=== PATIENT | female | born 1960 | race Caucasian/White ===

== ENCOUNTER → 2020-02-22 10:01 | Outpatient (CLI) | payer OTHER, SELFPAY ==
--- NOTE | ~2020-02-22 | MM_ITS ---
EXAMINATION: MM screening [facility] BI w [place] HISTORY: Screening mammogram TECHNIQUE: Craniocaudal and mediolateral oblique 3-D tomosynthesis images were obtained and synthetic 2-D images were generated. CAD analysis was submitted and interpreted. COMPARISON: 02/15/2019, 02/10/2018, 09/01/2017, 01/21/2017, 12/31/2016 BREAST PARENCHYMAL COMPOSITION: There are scattered areas of fibroglandular density. FINDINGS: There is no evidence of suspicious mass, calcification, or architectural distortion to sugg est malignancy in either breast. There has been no suspicious interval change. IMPRESSION: 1. No mammographic evidence of malignancy. 2. Recommend routine screening mammography in one year. BI-RADS Category 1: Negative Reviewed, dictated and finalized at location A.
--- NOTE | ~2020-02-22 | DEXA_ITS ---
Bone Density Report Name: Ange Ferreira Age: 59 Sex: Female Ethnicity: White Date of : 1960 Indication: osteopenia; monitoring treatment; postmenopausal Referring Provider: Alan, Shanna Study: Bone densitometry was performed. Exam Date: February 22, 2020 Accession number: [id number] Bone Density: Region BMD T-score Z-score Classification AP Spine (L1-L4) 0.910 -1.2 0.1 Osteopenia Femoral Neck (Left) 0.680 -1.5 -0.3 Osteopenia Total Hip (Left) 0.915 -0.2 0.7 Normal Femoral Neck (Right) 0.708 -1.3 0.0 Osteopenia Total Hip (Right) 0.874 -0.6 0.4 Normal Total Hip Mean 0.895 -0.4 0.6 Normal World Health Organization criteria for BMD impression classify patients as: Normal (T-score at or above -1.0), Osteopenia (T-score between -1.0 and -2.5), or Osteoporosis (T-score at or below -2.5). 10-year Fracture Risk: FRAX not reported because: Treated for osteoporosis Previous Exams: Region Exam Age BMD T-score BMD Change BMD Change Date g/cm2 vs Baseline vs Previous AP Spine(L1-L4) 02/22/2020 59 0.910 -1.2 -0.010 0.082* 02/10/2018 57 0.828 -2.0 -0.092* -0.089* 12/13/2013 53 0.917 -1.2 -0.003 -0.003 09/02/2011 50 0.920 -1.2 Total Hip(Left) 02/22/2020 59 0.915 -0.2 0.013 0.062* 02/10/2018 57 0.853 -0.7 -0.050* -0.091* 12/13/2013 53 0.944 0.0 0.041* 0.041* 09/02/2011 50 0.903 -0.3 Total Hip(Right) 02/22/2020 59 0.874 -0.6 0.017 0.097* 02/10/2018 57 0.777 -1.4 -0.081* -0.090* 12/13/2013 53 0.866 -0.6 0.009 0.009 09/02/2011 50 0.857 -0.7 *Denotes significance at 95% confidence level, LSC for AP Spine = 0.022 g/cm2, LSC for Total Hip = 0.027 g/cm2 Clinical Information Provided by Patient: Is being treated for osteoporosis Has used the following medications: Fosamax (i.e. alendronate), Vitamin D, Calcium Patient maximum height was 61.5 Menopause Age: 48 No regular weight bearing exercise Drinks caffeinated beverages Onset of menses at age 13 Number of children 2 Impression: The patient has low bone mass, based on the Left Femoral Neck T-score. No significant bone loss was observed. Discussion: PATIENT UNDER TREATMENT WITH NO SIGNIFICANT BMD LOSS SINCE LAST EXAM. In an untreated patient, BMD typically declines with age. Sarita melgar
== END ==
PROVIDERS: PCP Internal Medicine; Visit Provider Nurse Practitioner
DX: Z12.31 Encounter for screening mammogram for malignant neoplasm of breast (principal); Z78.0 Asymptomatic menopausal state; M85.89 Other specified disorders of bone density and structure, multiple sites
CPT/HCPCS: 77063; 77067; 77080

== ENCOUNTER 2021-01-25 16:32 | Outpatient (CLI) | payer OTHER, SELFPAY | END 2021-01-25 16:33 | disposition home or self-care (01) | LOC: ANHCOVIDVC 16:33 | PROVIDERS: PCP Internal Medicine | DX: Z23 Encounter for immunization (principal) | CPT/HCPCS: 0001A; 91300 ==

== ENCOUNTER 2021-02-15 16:30 | Outpatient (CLI) | payer OTHER, SELFPAY | END 2021-02-15 16:31 | disposition home or self-care (01) | LOC: ANHCOVIDVC 16:30 | PROVIDERS: PCP Internal Medicine | DX: Z23 Encounter for immunization (principal) | CPT/HCPCS: 0002A; 91300 ==

== ENCOUNTER → 2021-04-02 15:39 | Outpatient (CLI) | payer OTHER, SELFPAY ==
--- NOTE | ~2021-04-02 | MM_ITS ---
EXAMINATION: MM screening [facility] BI w [place] HISTORY: Screening mammogram TECHNIQUE: Craniocaudal and mediolateral oblique 3-D tomosynthesis images were obtained and synthetic 2-D images were generated. CAD analysis was submitted and interpreted. COMPARISON: 02/22/2020, 02/15/2019, 02/10/2018 BREAST PARENCHYMAL COMPOSITION: There are scattered areas of fibroglandular density. FINDINGS: There is no evidence of suspicious mass, calcification, or architectural distortion to sugg est malignancy in either breast. There has been no suspicious interval change. IMPRESSION: 1. No mammographic evidence of malignancy. 2. Recommend routine screening mammography in one year. BI-RADS Category 1: Negative Reviewed, dictated and finalized at location A.
== END ==
PROVIDERS: PCP Internal Medicine; Visit Provider Nurse Practitioner
DX: Z12.31 Encounter for screening mammogram for malignant neoplasm of breast (principal)
CPT/HCPCS: 77063; 77067

== ENCOUNTER → 2022-06-06 14:49 | Outpatient (CLI) | payer OTHER, SELFPAY ==
--- NOTE | ~2022-06-06 | MM_ITS ---
EXAMINATION: MM screening [facility] BI w [place] HISTORY: Screening mammogram TECHNIQUE: Craniocaudal and mediolateral oblique 3-D tomosynthesis images were obtained and synthetic 2-D images were generated. CAD analysis was submitted and interpreted. COMPARISON: 04/02/2021, 02/22/2020, 02/15/2019 BREAST PARENCHYMAL COMPOSITION: There are scattered areas of fibroglandular density. FINDINGS: RIGHT BREAST: A mass is present in the middle third of the outer breast 6.5 cm from the nipple.. LEFT BREAST: There is no suspicious mass, calcification, or architectural distortion to suggest malig gen. There has been no significant interval change. IMPRESSION: 1. Right breast mass. 2. Additional mammographic views and possible breast ultrasound are recommended. BI-RADS Category 0: Incomplete: Needs additional imaging evaluation. Reviewed, dictated and finalized at location A. IMPRESSION: 1. Right breast mass. 2. Additional mammographic views and possible breast ultrasound are recommended . BI-RADS Category 0: Incomplete: Needs additional imaging evaluation.
--- NOTE | ~2022-06-06 | DEXA_ITS ---
Bone Density Report Name: DENISSE MCLAUGHLIN Age: 61 Sex: Female Ethnicity: White Date of : 1960 Indication: osteopenia; monitoring treatment; postmenopausal Referring Provider: Alan, Shanna Study: Bone densitometry was performed. Exam Date: June 06, 2022 Accession number: [id number] Bone Density: Region BMD T-score Z-score Classification AP Spine (L1-L4) 0.888 -1.4 0.1 Osteopenia Femoral Neck (Left) 0.686 -1.5 -0.1 Osteopenia Total Hip (Left) 0.892 -0.4 0.6 Normal Femoral Neck (Right) 0.751 -0.9 0.5 Normal Total Hip (Right) 0.850 -0.8 0.3 Normal Total Hip Mean 0.871 -0.6 0.5 Normal World Health Organization criteria for BMD impression classify patients as: Normal (T-score at or above -1.0), Osteopenia (T-score between -1.0 and -2.5), or Osteoporosis (T-score at or below -2.5). 10-year Fracture Risk: FRAX not reported because: Treated for osteoporosis Previous Exams: Region Exam Age BMD T-score BMD Change BMD Change Date g/cm2 vs Baseline vs Previous AP Spine(L1-L4) 06/06/2022 61 0.888 -1.4 -0.032* -0.022 02/22/2020 59 0.910 -1.2 -0.010 0.082* 02/10/2018 57 0.828 -2.0 -0.092* -0.089* 12/13/2013 53 0.917 -1.2 -0.003 -0.003 09/02/2011 50 0.920 -1.2 Total Hip(Left) 06/06/2022 61 0.892 -0.4 -0.010 -0.023 02/22/2020 59 0.915 -0.2 0.013 0.062* 02/10/2018 57 0.853 -0.7 -0.050* -0.091* 12/13/2013 53 0.944 0.0 0.041* 0.041* 09/02/2011 50 0.903 -0.3 Total Hip(Right) 06/06/2022 61 0.850 -0.8 -0.007 -0.024 02/22/2020 59 0.874 -0.6 0.017 0.097* 02/10/2018 57 0.777 -1.4 -0.081* -0.090* 12/13/2013 53 0.866 -0.6 0.009 0.009 09/02/2011 50 0.857 -0.7 *Denotes significance at 95% confidence level, LSC for AP Spine = 0.022 g/cm2, LSC for Total Hip = 0.027 g/cm2 Clinical Information Provided by Patient: Is being treated for osteoporosis Has used the following medications: Vitamin D, Calcium Patient maximum height was 61.25 Menopause Age: 48 Drinks caffeinated beverages Onset of menses at age 13 Number of children 2 Impression: The patient has low bone mass, based on the Left Femoral Neck T-score. No significant bone loss was observed. Discussion: PATIENT FRANCK
== END ==
PROVIDERS: PCP Internal Medicine; Visit Provider Nurse Practitioner
DX: Z12.31 Encounter for screening mammogram for malignant neoplasm of breast (principal); Z78.0 Asymptomatic menopausal state; M85.88 Other specified disorders of bone density and structure, other site; R92.8 Other abnormal and inconclusive findings on diagnostic imaging of breast; M85.852 Other specified disorders of bone density and structure, left thigh
CPT/HCPCS: 77063; 77067; 77080

== ENCOUNTER → 2022-07-08 09:12 | Outpatient (CLI) | payer OTHER, SELFPAY ==
--- NOTE | ~2022-07-08 | MMUS_ITS ---
EXAMINATION: MM diagnostic [facility] RT w [place], US breast RT limited HISTORY: Right breast mass in middle third of outer breast 6.5 cm from nipple reported on 06/06/2022 s creening mammogram TECHNIQUE: Additional 3-D tomosynthesis images of the right breast were performed and synthetic 2-D i mages were generated. CAD analysis was submitted and interpreted. High resolution targeted 9:00 right breast ultrasound was performed. COMPARISON: None FINDINGS: MAMMOGRAPHIC FINDINGS: There is an approximately 4 mm circumscribed mass situated posteriorly in the outer mid right breast. ULTRASOUND: At 9:00 6 cm from the nipple there is an approximately 3.6 mm mildly irregular hypoechoic area. No in ternal vascularity is noted on color flow imaging and no posterior shadowing is noted. Ultrasound-leo ded biopsy is recommended in this postmenopausal patient with developing mammographic density. IMPRESSION: 1. 3.6 mm irregular hypoechoic mass at 9:00 6 cm from nipple 2. Ultrasound-guided biopsy is recommended BI-RADS category 4, suspicious findings. Dr. Suarez telephoned the mammogram and ultrasound report and ultrasound-guided biopsy recommendation o n 07/08/2022 at 1017 hours to Nurse Mcfarland Reviewed, dictated and finalized at location A. IMPRESSION: 1. 3.6 mm irregular hypoechoic mass at 9:00 6 cm from nipple 2. Ultrasound-guided biopsy is recommended BI-RADS category 4, suspicious findings. Dr. Suarez telephoned the mammogram and ultrasound report and ultrasound-guided b iopsy recommendation on 07/08/2022 at 1017 hours to Nurse Mcfarland
== END ==
PROVIDERS: PCP Internal Medicine; Visit Provider Obstetrics & Gynecology Gynecology
DX: R92.8 Other abnormal and inconclusive findings on diagnostic imaging of breast (principal)
CPT/HCPCS: 76642; 77061; 77065; G0279

== ENCOUNTER 2024-09-20 11:54 | Outpatient (CLI) | payer OTHER, SELFPAY | END 2024-09-20 11:55 | disposition home or self-care (01) | PROVIDERS: PCP Internal Medicine; Visit Provider Nurse Practitioner | DX: M25.562 Pain in left knee (principal) | CPT/HCPCS: 73562 ==

== ENCOUNTER 2024-12-01 08:54 | Outpatient (CLI) | payer OTHER, SELFPAY ==
--- NOTE | ~2024-12-01 | DEXA_ITS ---
Bone Density Report Name: DENISSE MCLAUGHLIN Age: 64 Sex: Female Ethnicity: White Date of : 1960 Indication: postmenopausal; screening for osteoporosis; Referring Provider: ANTONIETA, LENCHO Study: Bone densitometry was performed. Exam Date: December 01, 2024 Accession number: [id number] Bone Density: Region BMD T-score Z-score Classification AP Spine(L1-L4) 0.895 -1.4 0.3 Osteopenia Femoral Neck (Left) 0.665 -1.7 -0.2 Osteopenia Total Hip (Left) 0.987 0.4 1.5 Normal Femoral Neck (Right) 0.714 -1.2 0.3 Osteopenia Total Hip (Right) 0.970 0.2 1.4 Normal Total Hip Mean 0.978 0.3 1.5 Normal World Health Organization criteria for BMD impression classify patients as: Normal (T-score at or above -1.0), Osteopenia (T-score between -1.0 and -2.5), or Osteoporosis (T-score at or below -2.5). 10-year Fracture Risk(1): Major Osteoporotic Fracture 9.2% Hip Fracture 1.0% Reported Risk Factors: [place] (), Neck BMD=0.665, BMI=26.1 (1) FRAX(R) Version 3.08. Fracture probability calculated for an untreated patient. Fracture probability may be lower if the patient has received treatment. Clinical Information Provided by Patient: Has used the following medications: Vitamin D, Calcium Patient maximum height was 62 Menopause Age: 50 Drinks caffeinated beverages Onset of menses at age 13 Number of children 2 Impression: The patient has low bone mass, based on the Left Femoral Neck T-score. The patient has an estimated ten-year risk of hip fracture of 1% and an estimated ten-year risk of major fracture of 9.2%, based on the WHO FRAX algorithm. Discussion: BONE DENSITY IS LOW AT ONE OR MORE SKELETAL SITES. This patient's lowest T-score is low at one or more skeletal sites. It meets the World Health Organization's (WHO) criteria for ?low bone mass? (T-score between -1.0 and -2.5). The patient's 10-year risk of fracture as calculated by FRAX is less than the threshold where pharmacological therapy is recommended by the National Osteoporosis Foundation (NOF). However, all treatment decisions require clinical judgment and consideration of individual patient factors, including patient preferences, comorbidities, previous drug use, risk factors not captured in the FRAX model (e.g., frailty, falls, vitamin D deficiency, increased bone turnover, interval significant decline in bone density) and possible under or overestimation of fracture risk by FRAX. The patient should follow a healthful lifestyle (good nutrition with adequate calcium and vitamin D, and appropriate weight-bearing exercise). Follow-Up: Consider repeating this study in 2 to 3 years to reassess this patient's status, or sooner if there is some new clinical indication. Reported by: ALENA on 12/01/2024 9:40:00 AM. Reviewed, dictated and finalized at location AImer VIVEROS
== END 2024-12-01 08:55 | disposition home or self-care (01) ==
LOC: ANHIMG 08:57
PROVIDERS: PCP Internal Medicine; Visit Provider Nurse Practitioner
DX: M85.89 Other specified disorders of bone density and structure, multiple sites (principal); Z78.0 Asymptomatic menopausal state
CPT/HCPCS: 77080

== ENCOUNTER 2024-12-31 09:41 | Outpatient (CLI) | payer OTHER, SELFPAY ==
--- NOTE | ~2024-12-31 | MR_ITS ---
EXAMINATION: MR knee LT wo con DATE: 12/31/2024 10:11 INDICATION: Left knee pain TECHNIQUE: Magnetic resonance imaging (MRI) of the left knee was performed without intravenous contra st. Sequences included coronal PD-weighted FSE, coronal PD-weighted FS FSE, sagittal T2-weighted FSE , sagittal PD-weighted FS FSE and axial PD weighted fat saturated FSE. COMPARISON: None. FINDINGS: Medial compartment: Complex medial meniscal tear with longitudinal horizontal tear plane extending from the posterior hor n into the posterior body and with a secondary longitudinal horizontal tear plane at the junction of the body and posterior horn extending into the portion meniscus caudal to the main horizontal tear pl ane. There is medial extrusion of the periphery of the meniscus positioned between the tear planes. A rticular cartilage is normal. Lateral compartment: Lateral meniscus is normal. Articular cartilage is normal. Patellofemoral compartment: Shallow chondral ulceration with smooth margins at the central aspect of the patellar apical ridge. M ild partial-thickness chondral fissuring along the inferomedial rim of the medial patellar facet. Tro chlear cartilage is normal. Ligaments and tendons: Anterior and posterior cruciate ligaments are normal. The medial collateral ligament and fibular maureen ateral ligament complex are normal. Patellar tendon is normal. Mild distal quadriceps tendinopathy wi thout tear. The visualized medial and lateral hamstring tendons as well as the iliotibial band are no rmal. Fluid: Physiologic amount of fluid in the joint space. No loose osteochondral bodies identified. Small Plata 's cyst. Osseous/other: Normal marrow signal. No fracture or pathologic marrow replacing process. There is mild edema in the superficial suprapatellar fat pad which can be seen with fat pad impingement syndrome. IMPRESSION: 1. Complex medial meniscal tear. 2. 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 3. Edema of the superficial suprapatellar fat pad consistent with fat pad impingement syndrome. 4. Small Plata's cyst. Reviewed, dictated and finalized at location B. S COUNTER ASSOCIATE IMPRESSION: 1. Complex medial meniscal tear. 2. 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 3. Edema of the superficial suprapatellar fat pad consistent with fat pad impin gement syndrome. 4. Small Plata's cyst.
== END 2024-12-31 09:42 | disposition home or self-care (01) ==
LOC: GOSHIMG 09:42
PROVIDERS: PCP Internal Medicine; Visit Provider Nurse Practitioner
DX: S83.232A Complex tear of medial meniscus, current injury, left knee, initial encounter (principal); X58.XXXA Exposure to other specified factors, initial encounter; M22.42 Chondromalacia patellae, left knee; R60.9 Edema, unspecified; M71.22 Synovial cyst of popliteal space [Baker], left knee
CPT/HCPCS: 73721